=== PATIENT | male | born 1940 | race Caucasian/White ===

== ENCOUNTER → 2016-11-08 | Outpatient (CLI) | payer OTHER ==
--- NOTE | 2016-11-11 14:01 | CT ---
CT Scan of the Chest Without Contrast at 1438 hours History: Right lower lobe 5-mm pulmonary nodule, follow up. COMPARISON: [facility] CTs from September 2015 and June 2012. Technique: Noncontrast multidetector helical CT imaging was performed from the superior thoracic inl et to the diaphragm. The radiologist manipulated images at the computer workstation. Dose reduction techniques were utilized. Findings: A right lower lobe 5-mm noncalcified pulmonary nodule appears stable since 2011, image 138 of series 4, consistent with benign etiology. Linear densities and bronchiectasis in the right lower lobe on image 123 of series 4 appears stable. There is a tiny 2-mm benign-appearing right major fissu re nodular density image 114 of series 4 Moderate atherosclerotic calcification in the thoracic aorta without aneurysm. Minimal coronary arter y calcification. Heart is normal in size without pericardial effusion. No pleural effusion or pneumot horax. No significant mediastinal, hilar or axillary adenopathy. Sclerotic bone density in the ventral right side of the L1 vertebral body similar to the previous jane dy. Limited upper abdomen demonstrates multiple probable hepatic cysts, stable measuring up to 3.1 cm . Impression: 1. Stable benign right lower lobe 5-mm noncalcified pulmonary nodule, unchanged since 2012 and, there fore, no further follow up recommended. 2. Stable parenchymal scarring and bronchiectasis in the right lower lobe without acute pneumonia or new pulmonary nodules. 3. No significant adenopathy 4. Atherosclerotic aorta without aneurysm. 5. Coronary atherosclerosis.
== END ==
LOC: FIMAGING 14:16
PROVIDERS: ATTEND Internal Medicine
DX: R91.1 Solitary pulmonary nodule (principal)

== ENCOUNTER 2018-12-18 02:36 | Emergency (ER) | payer OTHER ==
[2018-12-18 02:56] LABS: PLATELET COUNT 204 10^3/uL (150-400)
--- NOTE | 2018-12-18 02:59 | EDPHY ---
H & P Stated Complaint: Chest Pain Time Seen by Provider: 12/18/18 02:50 HPI/ROS: Chief Complaint: Chest tightness HPI: 78-year-old male woke at 1:30 a.m. This morning with tightness in his chest, lightheadedness, felt sweaty. At worst is about a 4/10. Symptoms lasted about 30 min and called 911. On EMS arrival patient was noted to be diaphoretic and had a near syncopal episode. At that time and a blood pressure of 80 systolic. Did not lose consciousness. He was noted to be in atrial fibrillation with a rapid ventricular response. Patient is feeling better now. Tightness has resolved. He has had a total of 325 mg of aspirin. Does not have a history of atrial fibrillation in the past. Did have an unspecified sinus tachycardia, hypertension and hyperlipidemia. Two weeks ago he had a GI bug with nausea vomiting and diarrhea. Symptoms lasted for 4 days and then resolved. He has otherwise been in his usual state health. Right now is feeling fatigued. No fevers or chills. No cough. No abdominal pain. No leg pain or swelling. No pleuritic chest pain. ROS: 10 systems were reviewed and were negative except those elements noted in the HPI. PMH: Hyperlipidemia Social History: No smoking, no alcohol, no recreational drug use Family History: non-contributory Physical Exam: Gen: Awake, Alert, No Distress HEENT: Nose: no rhinorrhea Eyes: PERRLA, EOMI Mouth: Moist mucosa Neck: Supple, no JVD Chest: nontender, fine crackles at the bilateral bases Heart: S1, S2 normal, no murmur, irregularly irregular Abd: Soft, non-tender, no guarding Back: no CVA tenderness, no midline tenderness Ext: no edema, non-tender Skin: no rash Neuro: CN II-XII intact, Sensation grossly intact, Strength 5/5 in bilateral upper and lower extremities - Personal History Current Tetanus/Diphtheria Vaccine: Unsure Current Tetanus Diphtheria and Acellular Pertussis (TDAP): Unsure - Medical/Surgical History Hx Asthma: No Hx Chronic Respiratory Disease: No Hx Diabetes: No Hx Cardiac Disease: Yes Hx Renal Disease: No Hx Cirrhosis: No Hx Alcoholism: No Hx HIV/AIDS: No Hx Splenectomy or Spleen Trauma: No Other PMH: Htn - Social History Smoking Status: Former smoker Constitutional: Initial Vital Signs Temperature (C) 36.4 C 12/18/18 02:42 Heart Rate 104 H 12/18/18 02:42 Respiratory Rate 18 12/18/18 02:42 Blood Pressure 149/92 H 12/18/18 02:42 O2 Sat (%) 94 12/18/18 02:42 O2 Delivery Mode Room Air O2 (L/minute) 2 Allergies/Adverse Reactions: amoxicillin [Amoxicillin] Allergy (Mild, Verified 12/18/18 02:40) Rash Home Medications: Medication Instructions Recorded Aspirin 81mg (*) 12/18/18 Atorvastatin Calcium 12/18/18 Losartan/Hydrochlorothiazide 12/18/18 Metoprolol Succinate 12/18/18 Vardenafil HCl 12/18/18 Medical Decision Making - Diagnostics EKG Interpretation: ECG time 2:40 a.m. Atrial fibrillation with ventricular rate of 109, ST segment depression in V4 through V6 without reciprocal changes. Imaging Results: Chest x-ray negative per my interpretation. Imaging: I viewed and interpreted images myself ED Course/Re-evaluation: 78-year-old male presenting with new onset atrial fibrillation with a near syncopal episode. No history of the same. Troponin is negative. Rate is not particularly excessive at this time. Have discussed with the hospitalist, Dr. Sawyer. He will admit to his service for further care. - Data Points Laboratory Results: Laboratory Results 12/18/18 02:43 12/18/18 02:43 12/18/18 12/18/18 12/18/18 02:45 02:43 02:43 WBC RBC Hgb Hct MCV MCH MCHC RDW Plt Count MPV Neut % (Auto) Lymph % (Auto) [place] % (Auto) Eos % (Auto) Baso % (Auto) Nucleat RBC Rel Count Absolute Neuts (auto) Absolute Lymphs (auto) Absolute Monos (auto) Absolute Eos (auto) Absolute Basos (auto) Absolute Nucleated RBC Immature Gran % Immature Gran # Sodium 136 mEq/L mEq/L (135-145) Potassium 3.3 mEq/L L mEq/L (3.5-5.2) Chloride 98 mEq/L mEq/L (97-110) Carbon Dioxide 29 mEq/l mEq/l (22-31) Anion Gap 9 mEq/L mEq/L (6-14) BUN 13 mg/dL mg/dL (7-23) Creatinine 0.7 mg/dL mg/dL (0.7-1.3) Estimated GFR > 60 Glucose 111 mg/dL H mg/dL (70-100) Calcium 8.9 mg/dL mg/dL (8.5-10.4) Magnesium 1.9 mg/dL mg/dL (1.6-2.3) POC Troponin I 0.02 ng/mL ng/mL (0.00-0.08) 12/18/18 02:43 WBC 6.87 10^3/uL 10^3/uL (3.80-9.50) RBC 4.50 10^6/uL 10^6/uL (4.40-6.38) Hgb 15.1 g/dL g/dL (13.7-17.5) Hct 44.2 % % (40.0-51.0) MCV 98.2 fL fL (81.5-99.8) MCH 33.6 pg pg (27.9-34.1) MCHC 34.2 g/dL g/dL (32.4-36.7) RDW 12.2 % % (11.5-15.2) Plt Count 204 10^3/uL 10^3/uL (150-400) MPV 9.5 fL fL (8.7-11.7) Neut % (Auto) 50.7 % % (39.3-74.2) Lymph % (Auto) 31.7 % % (15.0-45.0) [place] % (Auto) 15.4 % H % (4.5-13.0) Eos % (Auto) 1.5 % % (0.6-7.6) Baso % (Auto) 0.4 % % (0.3-1.7) Nucleat RBC Rel Count 0.0 % % (0.0-0.2) Absolute Neuts (auto) 3.48 10^3/uL 10^3/uL (1.70-6.50) Absolute Lymphs (auto) 2.18 10^3/uL 10^3/uL (1.00-3.00) Absolute Monos (auto) 1.06 10^3/uL H 10^3/uL (0.30-0.80) Absolute Eos (auto) 0.10 10^3/uL 10^3/uL (0.03-0.40) Absolute Basos (auto) 0.03 10^3/uL 10^3/uL (0.02-0.10) Absolute Nucleated RBC 0.00 10^3/uL 10^3/uL (0-0.01) Immature Gran % 0.3 % % (0.0-1.1) Immature Gran # 0.02 10^3/uL 10^3/uL (0.00-0.10) Sodium Potassium Chloride Carbon Dioxide Anion Gap BUN Creatinine Estimated GFR Glucose Calcium Magnesium POC Troponin I Medications Given: Discontinued Medications Enoxaparin Sodium (Lovenox) 70 mg SC EDNOW ONE Stop: 12/18/18 04:16 Last Admin: 12/18/18 04:27 Dose: 70 mg Metoprolol Tartrate (Lopressor) 25 mg PO ONCE ONE Stop: 12/18/18 03:53 Last Admin: 12/18/18 04:13 Dose: 25 mg Potassium Chloride (Klor Packets) 40 meq PO EDNOW ONE Stop: 12/18/18 03:34 Last Admin: 12/18/18 04:13 Dose: 40 meq Point of Care Test Results: Chemistry 12/18/18 02:45 POC Troponin I 0.02 ng/mL ng/mL (0.00-0.08) Departure - Departure Disposition: [facility] Inpatient Acute Clinical Impression: Atrial fibrillation Condition: Fair Referrals: Tina Valencia MD [Primary Care Provider] - As per Instructions
[2018-12-18] MEDS ORDERED: POTASSIUM CL 20 MEQ PKT PO ONE (03:33)
[2018-12-18] MEDS ORDERED: ENOXAPARIN 60 MG/0.6 ML SYR SC ONE (03:34)
[2018-12-18] MEDS ORDERED: ONDANSETRON DISINTEGRATING 4 MG TAB PO PRN (03:36)
[2018-12-18] MEDS ORDERED: ONDANSETRON 4 MG/2 ML VIAL IVP PRN (03:36)
[2018-12-18] MEDS ORDERED: ACETAMINOPHEN 325 MG TAB PO PRN (03:36)
[2018-12-18] MEDS ORDERED: METOPROLOL TARTRATE 25 MG TAB PO ONE (03:52)
[2018-12-18] MEDS ORDERED: ENOXAPARIN 80 MG/0.8 ML SYR SC ONE (04:15)
--- NOTE | 2018-12-18 04:17 | PDGENHP ---
History and Physical - Chief Complaint Chest pressure - History of Present Illness 78 yo M w/ hx of HTN presents with chest pressure. He woke up around 1 AM with a feeling of chest pressure and heart racing. He called EMS as a result. EMS noted AF w/ RVR on arrival so he was brought to the ED. During my evaluation the patient is in atrial fibrillation with HR in the 90-130 range. He is asymptomatic aside from a mild feeling of malaise at the moment. He denies prior history of atrial fibrillation or other cardiac problems aside from hypertension. He does take metoprolol for this on a daily basis, but does not recall his dose. He tells me he was sick with gastroenteritis over the last few weeks. Case discussed with ED physician Dr. Young; records reviewed and summarized above. History Information - Allergies/Home Medication List Allergies/Adverse Reactions: amoxicillin [Amoxicillin] Allergy (Mild, Verified 12/18/18 02:40) Rash Home Medications: Aspirin 81mg (*) 12/18/18 [Last Taken Unknown] Atorvastatin Calcium 12/18/18 [Last Taken Unknown] Losartan/Hydrochlorothiazide 12/18/18 [Last Taken Unknown] Metoprolol Succinate 12/18/18 [Last Taken Unknown] Vardenafil HCl 12/18/18 [Last Taken Unknown] I have personally reviewed and updated: family history, medical history - Past Medical History hypertension - Surgical History Additional surgical history: Prostate surgery - Family History Positive for: CAD Additional family history: SLE - Social History Smoking Status: Former smoker Review of Systems Review of Systems: ROS: 10pt was reviewed & negative except for what was stated in HPI & below Physical Exam Physical Exam: Temp Pulse Resp BP Pulse Ox 36.4 C 104 H 20 119/70 92 12/18/18 02:42 12/18/18 03:50 12/18/18 03:50 12/18/18 03:50 12/18/18 03:50 O2 (L/minute) 2 Constitutional: no apparent distress, not in pain Eyes: PERRL, EOMI Ears, Nose, Mouth, Throat: moist mucous membranes, no oral mucosal ulcers Cardiovascular: irregularly irregular, tachycardia Respiratory: no respiratory distress, clear to auscultation Gastrointestinal: normoactive bowel sounds, soft, non-tender abdomen Skin: warm, normal color Musculoskeletal: full muscle strength, no muscle tenderness Neurologic: AAOx3, CN II-XII Intact Psychiatric: interacting appropriately, not anxious Lab Data & Imaging Review 12/18/18 02:43 12/18/18 02:43 WBC 6.87 10^3/uL (3.80-9.50) 12/18/18 02:43 RBC 4.50 10^6/uL (4.40-6.38) 12/18/18 02:43 Hgb 15.1 g/dL (13.7-17.5) 12/18/18 02:43 Hct 44.2 % (40.0-51.0) 12/18/18 02:43 MCV 98.2 fL (81.5-99.8) 12/18/18 02:43 MCH 33.6 pg (27.9-34.1) 12/18/18 02:43 MCHC 34.2 g/dL (32.4-36.7) 12/18/18 02:43 RDW 12.2 % (11.5-15.2) 12/18/18 02:43 Plt Count 204 10^3/uL (150-400) 12/18/18 02:43 MPV 9.5 fL (8.7-11.7) 12/18/18 02:43 Neut % (Auto) 50.7 % (39.3-74.2) 12/18/18 02:43 Lymph % (Auto) 31.7 % (15.0-45.0) 12/18/18 02:43 [place] % (Auto) 15.4 % (4.5-13.0) H 12/18/18 02:43 Eos % (Auto) 1.5 % (0.6-7.6) 12/18/18 02:43 Baso % (Auto) 0.4 % (0.3-1.7) 12/18/18 02:43 Nucleat RBC Rel Count 0.0 % (0.0-0.2) 12/18/18 02:43 Absolute Neuts (auto) 3.48 10^3/uL (1.70-6.50) 12/18/18 02:43 Absolute Lymphs (auto) 2.18 10^3/uL (1.00-3.00) 12/18/18 02:43 Absolute Monos (auto) 1.06 10^3/uL (0.30-0.80) H 12/18/18 02:43 Absolute Eos (auto) 0.10 10^3/uL (0.03-0.40) 12/18/18 02:43 Absolute Basos (auto) 0.03 10^3/uL (0.02-0.10) 12/18/18 02:43 Absolute Nucleated RBC 0.00 10^3/uL (0-0.01) 12/18/18 02:43 Immature Gran % 0.3 % (0.0-1.1) 12/18/18 02:43 Immature Gran # 0.02 10^3/uL (0.00-0.10) 12/18/18 02:43 Sodium 136 mEq/L (135-145) 12/18/18 02:43 Potassium 3.3 mEq/L (3.5-5.2) L 12/18/18 02:43 Chloride 98 mEq/L (97-110) 12/18/18 02:43 Carbon Dioxide 29 mEq/l (22-31) 12/18/18 02:43 Anion Gap 9 mEq/L (6-14) 12/18/18 02:43 BUN 13 mg/dL (7-23) 12/18/18 02:43 Creatinine 0.7 mg/dL (0.7-1.3) 12/18/18 02:43 Estimated GFR > 60 12/18/18 02:43 Glucose 111 mg/dL (70-100) H 12/18/18 02:43 Calcium 8.9 mg/dL (8.5-10.4) 12/18/18 02:43 Magnesium 1.9 mg/dL (1.6-2.3) 12/18/18 02:43 POC Troponin I 0.02 ng/mL (0.00-0.08) 12/18/18 02:45 Visualized and Interpreted Chest x-ray results: Yes Chest X-Ray results: no infiltrate Visualized and Interpreted EKG results: Yes EKG Interpretation: Positive for: other (AF w/ RVR), ST depression (Lateral leads) Assessment & Plan Assessment: 78 yo M w/ HTN presents with new AF w/ RVR. Plan: 1. AF w/ RVR - New diagnosis for this patient. He first noted symptoms around 1 AM on the day of admission. He takes metoprolol daily for hypertension. [id number] of 3 denoting indication for ongoing anticoagulation. - Observe in PCU - Monitor on telemetry - Check TSH, maintain K>4, Mg>2 - TTE ordered - Will give additional metoprolol 25 mg PO now, additional as needed - Lovenox 70 mg x1 now for therapeutic anticoagulation - Maintain NPO, cardiology consult placed in case DCCV is required 2. HTN - Continue home medications pending reconciliation 3. HLD - Continue statin Diet - NPO Code - Full Ppx - LMWH Dispo - Admit under observation status
--- NOTE | 2018-12-18 05:15 | CPEKG ---
Test Reason : OPEN Blood Pressure : / mmHG Vent. Rate : 109 BPM Atrial Rate : 000 BPM P-R Int : 186 ms QRS Dur : 096 ms QT Int : 368 ms P-R-T Axes : 000 008 -08 degrees QTc Int : 496 ms Atrial Fibrillation Borderline ST depression, anterolateral leads Borderline prolonged QT interval Confirmed by Caleb Young ([id number]) on 12/18/2018 5:15:20 AM Referred By: Yohan Sawyer Confirmed By:Caleb Young
[2018-12-18] MEDS ORDERED: ATROPINE SULFATE 1 MG/10 ML SYR IVP ONE (10:09)
[2018-12-18] MEDS ORDERED: NS 1,000 ML IV ONE (10:09)
[2018-12-18] MEDS ORDERED: APIXABAN 5 MG TAB PO SCH (10:15)
[2018-12-18] MEDS ORDERED: METOPROLOL SUCCINATE XR 25 MG TAB PO SCH (10:15)
[2018-12-18] MEDS ORDERED: APIXABAN 5 MG TAB ONE (10:22)
[2018-12-18] MEDS ORDERED: METOPROLOL SUCCINATE XR 25 MG TAB PO ONE (10:22)
[2018-12-18 10:34] LABS: INR 1.18 (0.83-1.16); PROTIME(PATIENT) 15.2 SEC (12.0-15.0)
[2018-12-18 12:53] VITALS: BP 90/61
[2018-12-18] MEDS ORDERED: PROPOFOL 200 MG/20 ML VIAL ONE (14:41)
--- NOTE | 2018-12-18 14:44 | PDANEPAE ---
ANE History of Present Illness a fib for SIMONE/CV ANE Past Medical History - Cardiovascular History Hx Hypertension: Yes Hx Arrhythmias: Yes Hx Chest Pain: No Hx Coronary Artery / Peripheral Vascular Disease: No Hx CHF / Valvular Disease: No Hx Palpitations: Yes - Pulmonary History Hx COPD: No Hx Asthma/Reactive Airway Disease: No Hx Recent Upper Respiratory Infection: No Hx Oxygen in Use at Home: No Hx Sleep Apnea: No - Endocrine History Hx Diabetes: No Hypothyroid: No Hyperthyroid: No Obesity: no ANE Review of Systems Review of systems is: negative Review of Systems: - Exercise capacity Exercise capacity: >=4 METS ANE Patient History - Allergies Allergies/Adverse Reactions: amoxicillin [Amoxicillin] Allergy (Mild, Verified 12/18/18 02:40) Rash - Home Medications Home medications: home medication list seen and reviewed Home Medications: Aspirin 81mg (*) 12/18/18 [Last Taken Unknown] Atorvastatin Calcium 12/18/18 [Last Taken Unknown] Losartan/Hydrochlorothiazide 12/18/18 [Last Taken Unknown] Metoprolol Succinate 12/18/18 [Last Taken Unknown] Vardenafil HCl 12/18/18 [Last Taken Unknown] - Anes Hx Anes Hx: no prior problems - Smoking Hx Smoking Status: Former smoker ANE Labs/Vital Signs - Labs Result Diagrams: 12/18/18 02:43 12/18/18 07:10 - Vital Signs Blood Pressure: 90/61 Heart Rate: 111 Respiratory Rate: 16 O2 Sat (%): 94 Height: 168 cm Weight: 65.8 kg ANE Physical Exam - Airway Neck exam: FROM Mallampati Score: Class 1 Mouth exam: normal dental/mouth exam - Pulmonary Pulmonary: no respiratory distress - Cardiovascular Cardiovascular: regular rate and rhythym - ASA Status ASA Status: II ANE Anesthesia Plan Anesthesia Plan: GA with mask
[2018-12-18] MEDS ORDERED: ATROPINE SULFATE 1 MG/10 ML SYR ONE (14:45)
--- NOTE | 2018-12-18 14:48 | POSTANESTH ---
Post Anesthetic Evaluation Cardiovascular Status: Normal, Stable Respiratory Status: Normal, Stable Level of Consciousness/Mental Status: Can Participate in Eval, Mildly Sleepy, Arousable Pain Control: Adequate, Prn Tx Ordered Nausea/Vomiting Control: Adequate, Prn Tx Ordered Complications Possibly Related to Anesthesia: None Noted
--- NOTE | 2018-12-18 14:48 | PDHPUP ---
History & Physical Update H&P update statement: This history and physical update is based on an assessment of the patient which was completed after admission or registration (within 24 hours), but prior to the surgery/procedure. H&P update: H&P reviewed & patient examined, no change in patient's condition since H&P completed
--- NOTE | 2018-12-18 15:06 | GCON ---
[f rep st] CONSULTATION CARDIOLOGY CONSULTATION We were asked by Dr. Sawyer to evaluate the patient for his new onset atrial fibrillation. HISTORY OF PRESENT ILLNESS: The patient is a 78-year-old male with history of treated hypertension, dyslipidemia, and minimally elevated coronary artery calcium score who reports chest pressure and a feeling of a cold sweat starting at 1 a.m. He awoke feeling a little bit unwell and went to urinate. Symptoms persisted, and he presented to the emergency department for further evaluation. Upon arrival he was found to be in atrial fibrillation with rapid ventricular rates. He admits to some mild palpitations symptoms. He has not been noting any presyncope, syncope, dyspnea, PND, orthopnea, or peripheral edema. He reports that he did go to sleep in his usual state of health. Recent medical history is significant for a gastroenteritis. He reports that was two weeks ago. He had one day where he had some vomiting and had some mild malaise for a couple of days after that. Since then the symptoms have resolved, and he has not been experiencing any other similar symptoms. He has not been experiencing fever, chills, cough, dysuria, or hematuria. He denies any apnea, and he feels his blood pressure is well controlled. Alcohol intake is reported as one glass of wine nightly. He reports he exercises regularly with mostly calisthenics but will go on walks and feels unlimited in his ability to walk around. PAST MEDICAL HISTORY: 1. Hypertension. 2. Minimally elevated coronary artery calcium score. 3. History of aortic atheroma seen on CT of his chest. SURGICAL HISTORY: Positive for prostate surgery. FAMILY HISTORY: Father of primary biliary sclerosis. Mother in her 80s. She was an alcoholic. Sister at 81 a bit unexpectedly. She had a series of MIs and had lupus and leukemia. SOCIAL HISTORY: Patient is a former smoker, having quit in 1963. He reports one glass of wine daily. REVIEW OF SYSTEMS: As per HPI. A complete 10-point review of systems was obtained and negative except for what is dictated. MEDICATIONS: Home medications were reviewed. They are yet to be reconciled. They are currently listed as metoprolol succinate, losartan with hydrochlorothiazide, atorvastatin, and aspirin. ALLERGIES: Amoxicillin. PHYSICAL EXAMINATION: VITAL SIGNS: BP of 112/84, heart rate of 107, respirations 16, O2 saturation 95% on room air. GENERAL: He is a very pleasant male in no apparent distress. HEENT: Head is normocephalic, atraumatic. Eyes are without scleral icterus. Mucous membranes are moist. HEART: Irregularly irregular with no rubs, gallops, or murmurs. Mildly tachycardic. No carotid bruits auscultated, and he has 2+ PT and DP pulses bilaterally. LUNGS: Clear to auscultation. ABDOMEN: Soft with normoactive bowel sounds. : No [place] present. SKIN: Warm and dry with no edema present. PSYCH: Normal mood and affect for given situation. NEURO: No focal deficits detected. CBC with WBC 6.87, hemoglobin 15.1, hematocrit 44.2, platelet count of 204. INR of 1.18. BMP with sodium 136, potassium 4.1, chloride 102, CO2 of 27, BUN 12, creatinine 0.6, glucose of 100. Troponin at point of care was 0.02. TSH was 1.89. A 12-lead ECG personally interpreted demonstrates atrial fibrillation with a ventricular rate of 109. He has LVH by voltage with ST abnormalities in his lateral leads and inferior cues. Chest x-ray data reviewed shows no acute findings. I have reviewed his care with Dr. Camarillo. IMPRESSION AND PLAN: The patient is a 78-year-old male with a past medical history of hypertension. 1. Atrial fibrillation with rapid ventricular rate. He has a CHADS-VASc of 4 given age, hypertension, and history of atherosclerosis. We reviewed options and anticoagulation, and he is agreeable to initiate Eliquis therapy. This will be started at 5 mg by mouth twice daily with first dose being administered now. In regard to managing his atrial fibrillation, we discussed SIMONE-guided cardioversion. He is agreeable to this procedure. Risks, benefits, and alternatives reviewed with patient. He will be given another dose of metoprolol , which is actually his home medication. 2. Chest pressure and cold sweats. Another troponin will be ordered today. We discussed possible outpatient stress testing if he rules out in this admission. 3. Hypertension. His blood pressure actually appears well controlled. His home medication management may be continued. 4. Dyslipidemia with history of atherosclerosis. He can continue his home statin dosing. /[id number]/MODL MTDD
--- NOTE | 2018-12-18 15:18 | PDTEE1 ---
SIMONE Cardioversion Procedure Procedure: electrical cardioversion, transesophageal echo Indications: atrial fibrillation Consent: signed and in chart Anticoagulation: eliquis Procedural Details: Sedation provided by the anesthesia service. Pads were placed in anterior- posterior position. SIMONE probe was advanced and standard images obtained. There is no evidence of left atrial or left atrial appendage thrombus. Synchronized cardioversion attempt #1: 200J Results: normal sinus rhythm Conclusions: successful SIMONE cardioversion Patient Problems: Problems Problem Status Onset Atrial fibrillation Acute
--- NOTE | 2018-12-18 16:38 | ECHO ---
[email or web address] [address] [address] Main: [phone] Fax: Transesophageal Echocardiography Name: JOSH SERRANO MR#: [id number] Study Date: 12/18/2018 Study Time: 02:45 PM Date of : 1940 Age: 78 year(s) Height: ( ) Weight: ( ) BSA: Gender: Male Examination: SIMONE Indication: Pre Cardioversion Image Quality: Contrast: Requested by: Berna Willis Heart Rate: Rhythm: Atrial fibrillation BP: / Procedure Staff Patient Office Rep: Ishmael Gaming RDCS Reading Physician: Namrata Loyola MD Requesting Provider: SIMONE Exam Details Conclusions: Normal global systolic LV function. Normal RV function. No thrombus in left appendage. Mild mitral valve regurgitation is present. Trivial aortic valve regurgitation. Trivial tricuspid valve regurgitation. Proceeded with successful elective DC cardioversion.. Measurements: Chambers Valvular Assessment AV/MV Valvular Assessment TV/PV Normal Normal Normal Name Value Range Name Value Range Name Value Range Additional Measurements: Findings: Left Ventricle: Normal global systolic LV function. Right Ventricle: Normal RV function. Left Atrial Appendage: Good color flow doppler in the left atrial appendage. No thrombus in left appendage. Right Atrium: Patient: JOSH SERRANO Study Date: 12/18/2018 Page 1 of 2 02:45 PM The right atrium is normal in size. Mitral Valve: The mitral valve is normal in appearance. Mild mitral valve regurgitation is present. Aortic Valve: The aortic valve is tri-leaflet. Trivial aortic valve regurgitation. Tricuspid Valve: The tricuspid valve is normal in appearance and function. Trivial tricuspid valve regurgitation. Pulmonic Valve: The pulmonic valve is normal in appearance and function. Aorta: The aorta is normal. Pericardium: No pericardial effusion. Exam Comments: Proceeded with successful elective DC cardioversion.. l1n (No Signature Object) Patient: JOSH SERRANO Study Date: 12/18/2018 Page 2 of 2 02:45 PM [id number]
--- NOTE | 2018-12-18 16:42 | ECHO ---
[email or web address] [address] Main: [phone] Fax: Transthoracic Echocardiogram Name: JOSH SERRANO MR#: [id number] Study Date: 12/18/2018 Study Time: 09:14 AM Date of : 1940 Age: 78 year(s) Height: 170.2 cm (67 in.) Weight: 65.77 kg (145 lb.) BSA: 1.76 m2 Gender: Male Examination: Echo Indication: New onset Atrial Fibrillation Image Quality: Contrast: Requested by: Yohan Cruz BP: 120 mmHg/70 mmHg Heart Rate: 122 bpm Rhythm: Atrial fibrillation Indication: New onset Atrial Fibrillation Procedure Staff Pile Driving Technician: Ishmael Gaming RDCS Reading Physician: Namrata Loyola MD Requesting Provider: Conclusions: Normal size left ventricle. No LV hypertrophy. Normal global systolic LV function. The ejection fraction is visually estimated to be 65 %. No regional wall motion abnormality. No significant valvular disease. The rhythm is rapid atrial fibrillation. Measurements: Chambers Valvular Assessment AV/MV Valvular Assessment TV/PV Normal Normal Normal Name Value Range Name Value Range Name Value Range Ao Kait (MM): 3.5 cm (2.2 cm-3.7 AV Vmax: 0.82 m/s (1 m/s-1.7 TR Vmax: 2.12 mm/s ( - ) cm) m/s) TR PGmax: 18 mmHg ( - ) IVSd (2D): 0.8 cm (0.6 cm-1.1 AV maxP mmHg ( - ) syst. PAP: 23 mmHg ( - ) cm) LVOT Vmax: 0.88 m/s (0.7 m/s-1.1 PV Vmax: 0.72 m/s (0.6 m/s-0.9 LVDd (2D): 4.2 cm (4.2 cm-5.9 m/s) m/s) cm) MV E Vmax: 1.03 m/s ( - ) PV PGmax: 2 mmHg ( - ) LVDs (2D): 2.2 cm (2.1 cm-4 cm) LVPWd (2D): 0.8 cm (0.6 cm-1 cm) Visual EF: 65 % RVDd(2D): 1.7 cm (1.9 cm-3.8 cmmm) Continued Measurements: Chambers Valvular Assessment AV/MV Valvular Assessment TV/PV Name Value Name Value Name Value LADs Lon.9 cm MV E/E' Septal: 10.20 CVP (est.): 5 mmHg Patient: JOSH SERRANO Study Date: 12/18/2018 Page 1 of 2 09:14 AM LA Area: 17.8 cm2 MV E/E' Lateral: 9.50 LA Volume: 48 ml LA Volume Index: 27.3 ml/m2 Findings: Left Ventricle: Normal size left ventricle. No LV hypertrophy. Normal global systolic LV function. The ejection fraction is visually estimated to be 65 %. No regional wall motion abnormality. Unable to assess diastolic dysfunction. Right Ventricle: Normal size right ventricle. Normal RV function. Left Atrium: The left atrium is normal in size. Right Atrium: The right atrium is normal in size. Mitral Valve: The mitral valve is normal in appearance. There is no significant mitral valve regurgitation. No mitral stenosis is present. Aortic Valve: The aortic valve is tri-leaflet. The aortic valve is normal in appearance and function. Tricuspid Valve: The tricuspid valve is normal in appearance and function. Pulmonic Valve: The pulmonic valve is normal in appearance and function. Aorta: The aorta is normal. Pericardium: No pericardial effusion. (No Signature Object) Patient: JOSH SERRANO Study Date: 12/18/2018 Page 2 of 2 09:14 AM [id number]
--- NOTE | 2018-12-18 16:46 | GDS ---
[f rep st] DISCHARGE SUMMARY DISCHARGE DIAGNOSES: 1. Atrial fibrillation, status post cardioversion. 2. Hypertension. 3. Hyperlipidemia. HISTORY: The patient is a 78-year-old male, presenting with chest pressure and his heart racing. He was noted to be in AFib with rapid ventricular response. He has no previous history of AFib. He wa s on some metoprolol, but it was not controlling his rate. He was kept n.p.o., and Cardiology consul chepe and recommended cardioversion. This was performed by Dr. Namrata Loyola. He is now back in a normal sinus rhythm. He will discharge on metoprolol and Eliquis with close outpatient cardiology followup . He also had a SIMONE. DISCHARGE MEDICATIONS: Please see computerized record for full detailed list. New medications: 1. Eliquis 5 mg p.o. twice daily. 2. Toprol-XL 25 mg p.o. daily. ADDITIONAL DISCHARGE INSTRUCTIONS: Follow up with Berna Willis at [facility] in 1 to 2 weeks. The patient was seen and examined by me on the day of discharge. /[id number]/MODL
== END 2018-12-18 12:58 | disposition still patient (30) ==
LOC: EDUNIT# → UNDOADMOB 03:35 → UNDODISOB 16:45
DX: R55 Syncope and collapse (principal); I48.91 Unspecified atrial fibrillation; E78.5 Hyperlipidemia, unspecified
CPT/HCPCS: 71046; 92960; 93005; 93306; 93312; 96372; 99285; J1650; J2704; 84484-ER; J0461

== ENCOUNTER → 2019-01-05 | Outpatient (CLI) | payer OTHER | LOC: BHFA 15:30 | PROVIDERS: ATTEND Internal Medicine Cardiovascular Disease | DX: R07.9 Chest pain, unspecified (principal); I48.0 Paroxysmal atrial fibrillation ==

== ENCOUNTER → 2019-01-07 | Outpatient (CLI) | payer OTHER | LOC: BHFA 08:30 | PROVIDERS: ATTEND Internal Medicine Cardiovascular Disease | DX: R07.9 Chest pain, unspecified (principal); I48.0 Paroxysmal atrial fibrillation | CPT/HCPCS: 78452; 93017; A9500 ==